=== PATIENT | male | born 1980 | race Caucasian/White ===

== ENCOUNTER 2016-08-14 17:41 | Emergency (ER) | payer MEDICARE | END 2016-08-14 19:25 | disposition home or self-care (01) | LOC: D.ER 17:41 | DX: S86.812A Strain of other muscle(s) and tendon(s) at lower leg level, left leg, initial encounter (principal); X58.XXXA Exposure to other specified factors, initial encounter; Y93.64 Activity, baseball; Y92.830 Public park as the place of occurrence of the external cause ==